=== PATIENT | male | born 1970 | race Caucasian/White ===

== ENCOUNTER 2020-03-01 12:40 | Emergency (ER) | payer OTHER, SELFPAY ==
[2020-03-01 13:00] VITALS: BP 154/94; PULSE 106; RESP 18; TEMP 36.4; O2SAT 100
--- NOTE | 2020-03-01 14:06 | ED.MALEGU ---
HPI - Male Genitourinary General Chief complaint: Urogenital-Male Stated complaint: lower abdomen pain/painful urination Source: patient Mode of arrival: ambulatory Limitations: no limitations History of Present Illness HPI Narrative: Patient is a 49-year-old male who presents complaining of dysuria x1 week. He reports intermittent flank pain over the past month, denies pain at this time. He denies new sexual partners, denies testicular pain or swelling, denies penile discharge. Reports decreased urine stream at times, urgency and dysuria. He reports increasing fluid intake over the past day or 2 and it has helped significantly. Complaint: dysuria Related Data Home Medications Medication Instructions Recorded Confirmed loratadine-pseudoephedrine 1 tablet PO DAILY 03/01/20 03/01/20 [Claritin-D 24 Hour] Allergies Allergy/AdvReac Type Severity Reaction Status Date / Time No Known Allergies Allergy Verified 03/01/20 13:13 Review of Systems Review of Systems: Narrative: CONSTITUTIONAL: Denies fever, chills, or sweats. EYES: Denies visual changes, redness, or discharge. ENT: Denies rhinorrhea, congestion, sore throat, or otalgia. CARDIOVASCULAR: Denies chest pain, palpitations, or edema. RESPIRATORY: Denies cough or dyspnea. GASTROINTESTINAL: Denies abdominal pain, nausea, vomiting, or diarrhea. GENITOURINARY: Reports dysuria SKIN: Denies rash or itching. MUSCULOSKELETAL: Denies back pain, joint pain, or myalgia. NEUROLOGIC: Denies headache, numbness, dizziness, or weakness. PSYCHIATRIC: Denies anxiety or depression. PMFSH Past Medical History Medical History (Updated 03/01/20 @ 14:11 by CHRIST Virgen) No significant past medical history Surgical History Surgical History (Updated 03/01/20 @ 14:12 by CHRIST Virgen) No significant past surgical history Social History Social History (Updated 03/01/20 @ 14:12 by CHRIST Virgen) Smoking status: Current every day smoker Tobacco type: e-cigarettes/vaping Alcohol intake: current Substance use: never Living arrangements: alone Gender identity (if verbalized by the patient): Male Exam Narrative: Exam Narrative: GENERAL: Well-appearing, well-nourished, and in no acute distress. HEAD: Normocephalic, atraumatic. EYES:No redness or drainage. ENT: Mucous membranes pink and moist. CHEST: No respiratory distress. Clear to auscultation. HEART: Regular rate and rhythm. EXTREMITIES: Normal range of motion. SKIN: Warm, dry, no rash. NEURO: No focal deficits. Alert and oriented x3. Gait steady. PSYCH: Normal affect. No signs of depression or anxiety. Course Vital Signs Vital signs: Vital Signs Temperature 36.4 C 03/01/20 13:00 Pulse Rate 106 H 03/01/20 13:00 Respiratory Rate 18 03/01/20 13:00 Blood Pressure 154/94 H 03/01/20 13:00 Pulse Oximetry 100 03/01/20 13:00 Temperature 36.4 C 03/01/20 13:00 Pulse Rate 106 H 03/01/20 13:00 Respiratory Rate 18 03/01/20 13:00 Blood Pressure 154/94 H 03/01/20 13:00 Pulse Oximetry 100 03/01/20 13:00 MDM - Male Genitourinary [facility] Narrative Medical decision making narrative: Patient's UA was negative, however patient to be treated for UTI as he is symptomatic. Culture to be sent at this time. Also discussed with patient the need to follow-up with urology. Patient agrees to follow-up with urology, patient has stable for discharge home with outpatient follow-up as directed Differential Diagnosis Differential diagnosis: Likely urinary tract infection, urethritis, epididymitis and acute retention of urine Lab Data Labs: Urine Glucose Trace Reference Range: Negative Urine Bilirubin Negative Reference Range: Negative Urine Ketone Negative Reference Range: N
== END 2020-03-01 14:09 | disposition home or self-care (01) ==
PROVIDERS: Emergency Provider Nurse Practitioner
DX: N39.0 Urinary tract infection, site not specified (principal); F17.200 Nicotine dependence, unspecified, uncomplicated
CPT/HCPCS: 81003; 99213; G0463